=== PATIENT | female | born 1995 | race Caucasian/White ===

== ENCOUNTER 2020-01-24 18:54 | Emergency (ER) | payer OTHER ==
[2020-01-24 19:43] LABS: #Basophils 0.1 thou/uL (0.0-0.2); #Eosinphils 0.4 thou/uL (0.0-0.7); #Monocytes 0.7 thou/uL (0.11-0.59); #Neutrophils 6.8 thou/uL (1.40-6.50); %Basophils 0.9 % (0.0-1.0); %Eosinophils 3.1 % (0.0-10.0); %Lymphocytes 33.5 % (21.0-51.0); %Monocytes 5.7 % (0.0-10.0); %Neutrophils 56.9 % (42.0-75.0); Mean Corpuscular HGB CONC 33.9 g/dL (32.0-36.0); Mean Corpuscular Hemoglobin 27.5 pg (27.0-31.0); Mean Corpuscular Volume 81.2 fL (78.0-98.0); Mean Platelet Volume 7.2 fL (7.4-10.4); Platelet Count 421 thou/uL (130-400); RBC Distribution Width 11.9 % (11.5-14.5); Red Blood Cell (RBC) Count 5.44 mill/uL (4.20-5.40)
--- NOTE | 2020-01-24 19:46 | RAD ---
PORTABLE CHEST: 01/24/20 PROVIDED CLINICAL HISTORY: Chest pain. FINDINGS: Cardiac and mediastinal silhouette is within normal limits. No focal consolidation, pleural fluid or pneumothorax apparent. IMPRESSION: No evidence for an acute cardiopulmonary process. POS: [facility]
[2020-01-24 19:47] LABS: BHCG - Serum Negative (NEGATIVE); Pregs Control Background? CLEAR/WHITE (CLR/WHITE); Pregs Control Bar Appear? YES (CONTROL BAR)
[2020-01-24] MEDS ORDERED: Morphine 4 MG/ML VIAL ONE (19:56)
[2020-01-24] MEDS ORDERED: Ketorolac Tromethamine 30 MG/ML VIAL ONE (19:56)
[2020-01-24] MEDS ORDERED: Ondansetron PF 4 MG/2 ML Vial ONE (19:56)
[2020-01-24] MEDS ORDERED: Aspirin Chewable 81 MG TAB ONE (19:56)
[2020-01-24 20:08] LABS: ALT (SGPT) 67 U/L (8-55); AST (SGOT) 66 U/L (5-34); Albumin 4.8 g/dL (3.5-5.0); Alkaline Phosphatase 112 U/L (40-110); Anion Gap 18 mmol/L (10-20); BUN (Urea Nitrogen) 8 mg/dL (7.0-18.7); Bilirubin, Total 0.6 mg/dL (0.2-1.2); Calc. Creatinine Clearance 0 mL/min (70-130); Calcium 9.7 mg/dL (7.8-10.44); Carbon Dioxide 22 mmol/L (22-29); Chloride 102 mmol/L (98-107); Estimated GFR-MDRD 79; Globulin 4.3 g/dL (2.4-3.5); Glucose 116 mg/dL (70-105); Potassium 4.4 mmol/L (3.5-5.1); Protein, Total 9.1 g/dL (6.0-8.3); Sodium 138 mmol/L (136-145)
[2020-01-24 20:45] LABS: Bilirubin Negative (Negative); Blood, Urine Negative (Negative); Clarity Clear (Clear); Glucose, Urine (Dipstick) Normal (Negative); Ketone, Urine Negative (Negative); Leukocyte Negative Leu/uL (Negative); Nitrite Negative (Negative); Protein, Urine (Dipstick) Negative (Neg-Trace); Specific Gravity, Urine 1.005 (1.002-1.036); Urobilinogen Normal mg/dL (Less than 2)
== END 2020-01-24 21:46 | disposition home or self-care (01) ==
LOC: ERS 18:54
DX: U07.1 COVID-19 (principal); J20.8 Acute bronchitis due to other specified organisms
CPT/HCPCS: 71045; 80053; 81003; 83880; 84484; 84703; 85025; 85379; 93005; 96374; 96375; J1885; J2270; J2405